=== PATIENT | female | born 1985 | race African-American/Black ===

== ENCOUNTER 2022-04-20 13:23 | Emergency (ER) | payer OTHER ==
[~2022-04-20] VITALS: Ht 152.4 cm; Wt 82.1 kg
[2022-04-20 13:35] VITALS: TEMP 98
[2022-04-20 14:34] VITALS: BP 126/77
== END 2022-04-20 14:34 | disposition home or self-care (01) ==
LOC: ED 13:23
DX: O20.0 Threatened abortion (principal); Z3A.10 10 weeks gestation of pregnancy
CPT/HCPCS: 81000; 81025; 99284